=== PATIENT | female | born 1980 | race Caucasian/White ===

== ENCOUNTER 2022-05-31 10:33 | Emergency (ER) | payer OTHER, SELFPAY ==
--- NOTE | ~2022-05-31 | XR_ITS ---
EXAMINATION: XR hand RT min 3V INDICATION: Right hand pain TECHNIQUE: Three views of the right hand are obtained. COMPARISON: None available FINDINGS: There is medial soft tissue swelling of the hand adjacent to the fifth metacarpal. Bone ali gnment is normal. There is no fracture. The joint spaces are unremarkable. IMPRESSION: 1. Medial soft tissue swelling of the hand without acute osseous abnormality. Reviewed, dictated and finalized at location L.
[2022-05-31 10:42] VITALS: BP 141/87; PULSE 98; RESP 16; TEMP 37.2; O2SAT 99
--- NOTE | 2022-05-31 10:49 | ED.UPPEXIN ---
HPI - Extremity Injury (Upper) General Chief Complaint: Extremity Injury, Upper Stated Complaint: right hand swollen Time Seen by Provider: 05/31/22 10:49 Source: patient Mode of arrival: ambulatory Limitations: no limitations History of Present Illness HPI narrative: 41 yo F presents with c/o pain, swelling to R hand for approx. 1 wk. States pain started after hitting hand on car door. Opened car door and was reaching in to get something and door was closing on her. Reached back to grab door and hit her hand. Reports pain not improving. Has been taking advil once a day for pain. Pain worse with movement. All systems reviewed and negative except as noted above. Related Data Home Medications Medication Instructions Recorded Confirmed No Home Medications 05/31/22 05/31/22 Allergies Allergy/AdvReac Type Severity Reaction Status Date / Time No Known Allergies Allergy Unverified 05/31/22 10:48 Review of Systems Review of Systems: CONSTITUTIONAL: Denies fever, chills, or sweats. EYES: Denies visual changes, redness, or discharge. ENT: Denies rhinorrhea, congestion, sore throat, or otalgia. CARDIOVASCULAR: Denies chest pain, palpitations, or edema. RESPIRATORY: Denies cough or dyspnea. GASTROINTESTINAL: Denies abdominal pain, nausea, vomiting, or diarrhea. GENITOURINARY: Denies dysuria or hematuria. SKIN: Denies rash or itching. MUSCULOSKELETAL: Denies back pain, joint pain, or myalgia. Reports right hand pain with swelling. NEUROLOGIC: Denies headache, numbness, or weakness. PSYCHIATRIC: Denies anxiety or depression. All other systems reviewed are negative, except as documented in HPI. PMFSH Comments At time of signature, agree with nursing past medical, surgical, social and family history. There is no relevant family history pertinent to the presenting complaint. Exam Narrative: GENERAL: This is a well-nourished, well-developed patient, in no apparent distress. HEAD: normocephalic, atraumatic. EYES: PERRL. Sclera clear/white. Vision is grossly intact. EARS: External ears normal NOSE: External nose normal NECK: Neck supple, non-tender without lymphadenopathy, masses or thyromegaly. CARDIOVASCULAR: Regular rate and rhythm without murmurs, gallops, or rubs. RESPIRATORY: Clear to auscultation. Breath sounds equal bilaterally. No wheezes, rales, or rhonchi. SKIN: warm, Dry, intact with no suspicious lesions or rash, good texture and turgor. NEURO: awake, alert, and oriented to person, place and time. There were no obvious focal neurologic abnormalities. EXTREMITIES: tenderness to 4th and th metacarpal R hand with soft tissues swelling. no deformity or bruising noted. ROM and distal NV intact. Course Course Level of Care: Express Care Visit Vital Signs Vital signs: Vital Signs Temperature 37.2 C 05/31/22 10:42 Pulse Rate 98 05/31/22 10:42 Respiratory Rate 16 05/31/22 10:42 Blood Pressure 141/87 H 05/31/22 10:42 Pulse Oximetry 99 05/31/22 10:42 Oxygen Delivery Room Air 05/31/22 10:42 Temperature 37.2 C 05/31/22 10:42 Pulse Rate 98 05/31/22 10:42 Respiratory Rate 16 05/31/22 10:42 Blood Pressure 141/87 H 05/31/22 10:42 Pulse Oximetry 99 05/31/22 10:42 Oxygen Delivery Room Air 05/31/22 10:42 Reviewed MDM - Extremity Injury (Upper) MDM Narrative Medical decision making narrative: Patient is aware of diagnosis, understands and agrees to treatment plan. Anticipatory guidance given. Patient agrees to follow-up as directed and is aware of reasons to seek care at the emergency department. Portions of this record may have been created with voice recognition software Discussed x-ray results with patient. Recommend continue Advil, wear Huseyin wrap, rest. Follow-up with primary care physician for additional imaging if pain not improving. Imaging Data My impression: agree with radiologist Radiologist's impression: EXAMINATION: XR hand RT min 3V INDICATION: Right hand
== END 2022-05-31 11:28 | disposition home or self-care (01) ==
PROVIDERS: Emergency Provider Nurse Practitioner Family
DX: S69.91XA Unspecified injury of right wrist, hand and finger(s), initial encounter (principal); W22.8XXA Striking against or struck by other objects, initial encounter
CPT/HCPCS: 73130; 99203; G0463

== ENCOUNTER 2024-06-11 09:38 | Emergency (ER) | payer OTHER, SELFPAY ==
--- NOTE | ~2024-06-11 | XR_ITS ---
EXAMINATION: XR hand RT min 3V DATE: 06/11/2024 09:56 INDICATION: Right hand injury. TECHNIQUE: 3 views of right hand were obtained. COMPARISON: Right hand radiographs 05/31/2022 FINDINGS: Bone alignment is normal. No fracture. Joint spaces are normal. IMPRESSION: 1. No fracture. Reviewed, dictated and finalized at location A. IMPRESSION: 1. No fracture.
[2024-06-11 09:44] VITALS: BP 146/90; PULSE 80; RESP 16; TEMP 36.3; O2SAT 100
--- NOTE | 2024-06-11 09:50 | ED.UPPEXIN ---
HPI - Extremity Injury (Upper) General Chief Complaint: Extremity Injury, Upper Stated Complaint: Right Hand Injury Source: patient Mode of arrival: ambulatory Limitations: no limitations History of Present Illness HPI narrative: 43 y/o female presents with complaints of right hand pain x1 day. She states she slammed her right hand on her car door while she was closing it yesterday. She reports hand swelling and pain but denies any numbness or tingling, bruising or deformity. She is able to move each finger but reports pain to thumb and little finger with movement. Took ibuprofen. Related Data Home Medications Medication Instructions Recorded Confirmed No Home Medications 05/31/22 05/31/22 Allergies Allergy/AdvReac Type Severity Reaction Status Date / Time No Known Allergies Allergy Unverified 05/31/22 10:48 Review of Systems Review of Systems: CONSTITUTIONAL: Denies body aches, fever, chills CARDIOVASCULAR: Denies chest pain, palpitations, or edema. RESPIRATORY: Denies cough or dyspnea. SKIN: Denies rash, itching, or wounds. MUSCULOSKELETAL: Reports right hand swelling, right first and fifth finger pain with movement. Denies back pain, joint pain, or myalgia. NEUROLOGIC: Denies headache, numbness, tingling, or weakness. PSYCH: Denies depression or anxiety. All systems reviewed & are unremarkable except as noted in HPI and below PMFSH Comments At time of signature, I have reviewed and agree with nursing past medical, surgical, social and family history unless otherwise noted. Please see nursing chart for further information. There is no relevant family history pertinent to the presenting complaint Exam Narrative: GENERAL: Well-appearing CHEST: Speaks in full sentences. No respiratory distress. HEART: Regular rate and rhythm. Normal and equal peripheral pulses. EXTREMITIES: Right hand has normal strength and sensation, right hand and digits with normal range of motion, but endorses pain with movement. Right finger touches normal except for fifth finger due to reported pain. Mild right hand edema. No open wounds, or obvious deformity; alignment normal, pulse palpable and equal bilaterally, skin warm, dry, pink. Capillary refill less than 3 seconds. SKIN: Warm, dry, no rash. NEURO: Alert and oriented x3. PSYCH: Normal mood and affect Course Course Emergency Course: Patient is aware of diagnosis, understands and agrees to treatment plan. Anticipatory guidance given. Patient agrees to follow-up as directed and is aware of reasons to seek care at the emergency department. Portions of this record may have been created with voice recognition software Level of Care: Express Care Visit Vital Signs Vital signs: Vital Signs Temperature 97.3 F L 06/11/24 09:44 Pulse Rate 80 06/11/24 09:44 Respiratory Rate 16 06/11/24 09:44 Blood Pressure 146/90 H 06/11/24 09:44 Pulse Oximetry 100 06/11/24 09:44 Oxygen Delivery Room Air 06/11/24 09:44 Temperature 97.3 F L 06/11/24 09:44 Pulse Rate 80 06/11/24 09:44 Respiratory Rate 16 06/11/24 09:44 Blood Pressure 146/90 H 06/11/24 09:44 Pulse Oximetry 100 06/11/24 09:44 Oxygen Delivery Room Air 06/11/24 09:44 Reviewed MDM - Extremity Injury (Upper) MDM Narrative Medical decision making narrative: Discharge instructions and x-ray reviewed with patient. Right hand placed in an anup wrap in the clinic today. Patient's injury and pain appear to be of musculoskeletal nature. No concern for tendon or nerve injury. Patient is treatable on an outpatient basis. Differential Diagnosis Differential diagnosis: Likely sprain and strain of wrist, fracture of wrist, finger sprain and fracture of hand Imaging Data Radiologist's impression: Patient: Jamsin Almazan : 1980 MR#: [id number] Age: 43 Acct:[id number] Loc: [facility] ADM Date: 06/11/24Attending Dr: Ordering Physician: Josie Caruso APRN Date of S
== END 2024-06-11 10:13 | disposition home or self-care (01) ==
PROVIDERS: Emergency Provider Nurse Practitioner Family
DX: S60.221A Contusion of right hand, initial encounter (principal); V48.3XXA Unspecified car occupant injured in noncollision transport accident in nontraffic accident, initial encounter
CPT/HCPCS: 73130; 99213; G0463